=== PATIENT | female | born 1930 | race Caucasian/White ===

== ENCOUNTER → 2018-07-02 | Day surgery (SDC) | payer BC ==
--- NOTE | 2018-07-03 14:58 | PATH ---
Surgical Pathology Report Patient Name: JEEVAN WONG [facility]. Rec. #: [id number] /Age/Gender: 1930 (Age: 88) / F Account: [id number] [facility] Taken: 07/02/2018 Received: 07/02/2018 Reported: 07/03/2018 Physicians: Angelo Marcano M.D. Specimen(s) Received LEFT BREAST 12:30 Clinical History Nonpalpable lesion Ultrasound findings: Probably benign 1 cm hypodensity, 12-1:00 Final Diagnosis LEFT BREAST 12-1:00, ULTRASOUND GUIDED CORE BIOPSY: BREAST TISSUE WITH STROMAL FIBROSIS AND MICROCALCIFICATIONS. Electronically Signed Maria Eugenia Pavon M.D. Gross Description Received in formalin labeled "left 12:30" are multiple poon-yellow, cylindrical portions of fibroadipose tissue ranging from 0.2-1 cm in length and averaging 0.1 cm diameter. The specimens are submitted in toto in one cassette. Time from tissue taken to place in formalin: Less than one minute Total formalin fixation time: Between 7-8 hours. MLSZ/07/02/2018 sansteve/07/02/2018
== END | disposition home or self-care (01) ==
LOC: JRADUS-SUR 10:56
PROVIDERS: ATTEND Internal Medicine
PROC: 0HBU3ZX Excision of Left Breast, Percutaneous Approach, Diagnostic (ICD-10-PCS; principal; 2018-07-02)
DX: N60.32 Fibrosclerosis of left breast (principal)
CPT/HCPCS: 19083; 87899; 88305-TC; A4648